=== PATIENT | male | born 1975 | race Caucasian/White ===

== ENCOUNTER 2024-11-26 21:19 | Emergency (ER) | payer OTHER, SELFPAY ==
[2024-11-26 21:52] VITALS: BP 136/100
[2024-11-26 22:17] LABS: % Basophils 0.7 % (0-2); % Eosinophils 4.3 % (0-6); % Immature Granulocytes 0.2 % (0-0.5); % Lymphocytes 38.6 % (20.5-51.1); % Neutrophils 49.2 % (42.2-75.2); Absolute Basophils 0.1 10^3/uL (0-0.2); Absolute Eosinophils 0.4 10^3/uL (0-0.7); Absolute Lymphocytes 3.9 10^3/uL (1.2-3.4); Absolute Monocytes 0.7 10^3/uL (0.1-0.6); Hematocrit 45.4 % (39.0-52.0); Hemoglobin 15.7 g/dL (13.0-18.0); Mean Corp Hgb Conc. 34.6 g/dL (33.0-37.0); Mean Corpuscular Hgb 30.7 pg (27.0-31.0); Mean Corpuscular Volume 88.8 fL (80.0-94.0); Mean Platelet Volume 10.4 fL (7.4-10.4); Nucleated Red Blood Cells % 0 % (-); Platelet Count 323 10^3/uL (130-400); Red Blood Cell Count 5.11 10^6/uL (4.70-6.10); Red Cell Dist. Width 13.5 % (11.5-14.5); White Blood Cell Count 10.1 10^3/uL (4.8-10.8)
[2024-11-26 22:36] LABS: ALT (SGPT) 42 U/L (0-50); AST (SGOT) 26 U/L (17-59); Albumin 4.6 g/dl (3.5-5.0); Alkaline Phosphatase 47 U/L (38-126); Blood Urea Nitrogen 20 mg/dl (9-20); Calcium 10.7 mg/dl (8.4-10.2); Carbon Dioxide 26 mmol/L (22-30); Chloride 106 mmol/L (98-107); Glucose 112 mg/dl (70-99); Potassium 4.4 mmol/L (3.5-5.1); Sodium 139 mmol/L (135-145); Total Bilirubin 0.4 mg/dl (0.2-1.3); Total Protein 7.5 g/dl (6.3-8.2); eGFR > 60.00
[2024-11-26 22:47] LABS: Troponin I < 0.012 ng/ml
[2024-11-26 23:08] LABS: NT-proBNP < 20.0 pg/ml
[2024-11-26 23:11] VITALS: BP 125/85
[2024-11-27] VITALS: BP 116/93
--- NOTE | 2024-11-27 00:07 | ED.GENMED ---
History of Present Illness
General
Chief Complaint: Chest Pain
Source: patient
Exam Limitations: none
Time Seen by Provider: 11/26/24 23:57
Nursing documentation reviewed up to this point in time: agreed with
History of Present Illness
History of Present Illness:
This is a 48-year-old gentleman with no significant past medical history, takes no medicines on a daily basis. He presents with acute right-sided chest pain, moderate to severe in nature that began shortly after dinner tonight, persistent, worse
with deep breath, worse with cough. Prior to tonight he has been feeling well, no recent URI symptoms. He denies fever nor chills. He does admit to intermittent burping. He has had intermittent indigestion in the past but current chest pain
feels different. He took a dose of Tums without significant relief but admits that chest pain has markedly improved since arrival to the ED, has not completely resolved however.
He denies neck pain or back pain, no abdominal pain, no nausea no vomiting.
No recent travel. No recent lifting nor fall. No leg pain or swelling.
Past History
Past History
ED Past Medical History: None
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
Social History
Tobacco: Non-smoker
Alcohol: Occasional
Personal:
Living: with family
Employment: Employed
Family History
Family History: Negative Early CAD or CAD
Phy Exam
Physical Exam
Physical Exam:
GENERAL: 48-year-old overweight gentleman appears his stated age, bright and alert, pleasant, appears in no acute distress. Rare brief dry cough is noted.
EYE: anicteric
NECK: Supple, nontender, no meningismus, no significant adenopathy.
ENT: oral mucosa is moist. No rhinorrhea.
CARDIAC: Regular rate and rhythm. no murmur. No rub. Mild tenderness right anterior chest wall. No crepitus.
LUNGS: Clear breath sounds bilaterally, no acute respiratory distress, no wheezes/rales/rhonchi
ABDOMEN: Rotund, soft, nondistended, without focal tenderness, no r/g, no cvat. normoactive BS.
NEUROLOGICAL: Alert and oriented x3, no focal neuro deficits.
SKIN: Warm and dry, normal color, skin intact. No rash.
MUSCULOSKELETAL: No C/C/E. peripheral pulses are full and equal b/l. No palpable tenderness.
PSYCH: Normal and appropriate interaction.
Scores
Heart Score for Chest Pain Patients
STEMI patient?: No
History: Slightly or Non-Suspicious
ECG: Normal
Age: >45 - <65 years
Risk Factors: No Risk Factors
Troponin: </= Normal Limit
Heart Score for Chest Pain Patients: 1
Heart Score Risk: 2.5% MACE over next 6 weeks
Course
Orders/Labs/Results
Orders:
Orders
11/26/24 21:21
Electrocardiogram (*1) Urgent
Reason for Study: Other
Other Reason for Exam: Respiratory Distress
Cardiac Monitoring- Treatment ONCE
EKG- Treatment ONCE
IV Insert/Care/Rem.- Treatment PRN
CR Chest - 2 Views Urgent
Comment:
Reason For Exam: respiratory distress
O2 Therapy [RESP] Urgent
Titrate/Wean O2 to maintain O2 sat greater than (%): 93
Special Instructions: TO MAINTAIN CONTINUOUS O2 SATS >/= 93%
Pulse Ox/cont/shift [RESP] Urgent
Quantity: 1
Special Instructions: continuous pulse ox
11/26/24 22:09
Complete Blood Count/With Diff Urgent
Comprehensive Metabolic Panel Urgent
NT-proBNP Urgent
Troponin I Urgent
11/27/24 00:07
Aspirin Chewable [Low Strength Aspirin] 324 mg PO NOW STA
11/27/24 00:40
D-Dimer Urgent
Troponin I Urgent
11/27/24 01:27
Ketorolac [Toradol] 60 mg IM NOW STA
Abnormal Lab Results
11/26/24
22:09
Absolute Lymphs (auto) 3.9 H 10^3/uL
(1.2-3.4)
Absolute Monos (auto) 0.7 H 10^3/uL
(0.1-0.6)
Glucose 112 H mg/dl
(70-99)
Calcium 10.7 H mg/dl
(8.4-10.2)
11/26/24 22:09
11/26/24 22:09
Vital Signs
Initial and Last Documented VS:
Initial Vital Signs
Temp Pulse Resp BP Pulse Ox
97.8 F 69 20 136/100 96
11/26/24 21:52 11/26/24 21:52 11/26/24 21:52 11/26/24 21:52 11/26/24 21:52
Last Documented Vital Signs
Temp Pulse Resp BP Pulse Ox
97.8 F 69 38 126/84 97
11/26/24 21:52 11/27/24 01:01 11/27/24 01:01 11/27/24 01:01 11/27/24 01:01
MDM/Problems Addressed
Differential Diagnosis Includes:
Acute pleuritic type right-sided chest pain. Concern for acute pleurisy, GERD, ACS, musculoskeletal chest pain, pneumonia, PE. Dissection is less likely. Abdomen is soft without appreciable tenderness, cholecystitis is unlikely as well.
No significant risk factors for CAD nor thromboembolism.
Mild hypertension noted initially has since normalized.
EKG is unremarkable showing normal sinus rhythm, normal axis, normal intervals, no acute ST-T wave abnormalities. No old EKGs to compare.
Labs thus far unremarkable including normal troponin.
Chest x-ray shows mildly decreased lung volumes otherwise unremarkable.
Will repeat troponin now and will check D-dimer.
Will give 324 mg chewable aspirin now.
If D-dimer elevated will plan for CTA/PE study. If normal to consider musculoskeletal chest pain/pleurisy versus GERD and will trial an IV dose of Toradol and/or GI cocktail.
*Radiology
Radiology exam reviewed: radiology read reviewed
*Pulse Oximetry
SaO2: 97
Oxygen Mode of Delivery: Room air
Patient hypoxic: no
*EKG
Interpreted by ED Provider?: Yes
Interpretation: normal
Comparison EKG: no comparison EKG present
Rate: normal
Rhythm: sinus
[place]: normal axis
Interval: normal interval
QRS Pattern: normal QRS
Ischemia: no ischemia
*Portrait Photographer Interpretation
Rate: normal
Interpretation: normal
Rhythm: sinus
*Critical Care Note
Total Time (30-74mins, 75-104mins- exclusive of procedures): Not Applicable
Update Note
Update Note:
01:25
Repeat troponin and D-dimer negative.
Patient continues with mild right anterior chest pain worse with deep breath, worse with direct palpation. I suspect pleuritic/musculoskeletal in nature and will trial an IM dose of Toradol.
02:30
Patient feeling improved. He does continue with some reproducible right anterior chest wall pain.
I suspect musculoskeletal pain.
He now notes that he generally avoids NSAIDs as he has a history of acute kidney injury related to NSAIDs as a teenager.
As such we will add a short course of prednisone for what I suspect is musculoskeletal pain. He may take Tylenol as needed for discomfort.
Prompt follow-up with PCP for recheck.
ED Attending Note
-
Portions of this chart may have been created with voice recognition software.� Occasional wrong word or��sound alike� substitutions may have occurred due to the inherent limitations of voice recognition software.
Discharge Plan
Departure
Patient Disposition: Home (Routine Discharge)
Date of Disposition: 11/27/24
Time of Disposition: 02:31
Patient with high blood pressure during this ER visit?: No
Condition: Good
Discharge Problem:
Acute chest wall pain
Instructions: Costochondritis (DC)
Prescriptions:
New
prednisone 20 mg tablet
40 mg PO DAILY Qty: 10 0RF
Referrals:
Tone Yen I., [Family Provider, Internal Medicine] - Call in 1-3 days for appt
Interventions
Interventions:
*General Assessment Last Done: 11/26/24 21:52
*Neglect/Abuse Screening Last Done: 11/26/24 21:52
*ED- Fall Risk Assessment Last Done: 11/26/24 21:52
*ED COVID-19 Vaccine History Last Done: 11/26/24 21:52
ED- Cardiac Assessment Last Done: 11/26/24 23:26
Discharge Date and Time
Print Language: GEORGIAN
[2024-11-27] MEDS: LOW STRENGTH ASPIRIN 324 MG PO (01:00)
[2024-11-27 01:01] VITALS: BP 126/84
[2024-11-27 01:03] LABS: D-Dimer 0.32 ug/mlFEU (0.00-0.50)
[2024-11-27 01:15] LABS: Troponin I < 0.012 ng/ml
[2024-11-27] MEDS: TORADOL 60 MG IM (01:42)
[2024-11-27 02:00] VITALS: BP 129/80
== END 2024-11-27 02:37 | disposition home or self-care (01) ==
LOC: EMR 21:19
PROVIDERS: Emergency Medicine; EMERGENCY PHYSICIAN Emergency Medicine; FAMILY PHYSICIAN Internal Medicine
DX: R07.89 Other chest pain (principal)
CPT/HCPCS: 99285; 96372; 71046; 80053; 83880; 84484; 85025; 85379; 93005